=== PATIENT | female | born 1995 | race Native Hawaiian/Other Pacific Islander ===

== ENCOUNTER 2017-11-11 11:31 | Observation (INO) | payer OTHER ==
[2017-11-11] MEDS ORDERED: ONDANSETRON 4 MG/2 ML VIAL IVP PRN (11:57)
[2017-11-11] MEDS ORDERED: LR 1,000 ML IV SCH (12:00)
--- NOTE | 2017-11-11 12:23 | GHP ---
DATE OF ADMISSION: 11/11/2017 This is a triage observation note ADMITTING DIAGNOSIS: Intrauterine at 15 and 4/7 weeks gestation with abrupt onset of left lower quadrant pain and nausea. Evaluate for possible ovarian torsion or other etiologies. HISTORY OF PRESENT ILLNESS: The patient is a 22-year-old, 1, para 0, with an unsure last men strual period but an estimated due date of 05/02/2018 that was set by an 8-week ultrasound. She has had good care at [facility] since registration at 8 weeks' gestation and had a rel atively uncomplicated course. On the morning of the 2nd, the patient describes waking up and having increased nausea. She had significant 1st trimester nausea, but it had been improving over the previ ous few weeks. On the morning of the 2nd, she woke up and said that it was much worse. However, she did not have any vomiting episodes. She presented to work at [employer] [facility] a.m. she had an abrupt onset of left lower quadrant pain which caused her to have worse n ausea and become tearful. She describes her pain as 8/10, stabbing in nature, pinpoint of her left l ower quadrant. She denies any uterine cramping. No leakage of fluid. No vaginal bleeding. No abno rmal discharge. No dysuria, urgency or frequency. No difficulty with bowel or bladder. She has had no evidence of constipation and in fact had a normal bowel movement this morning and it did not caus e her pain. She says she was sitting at rest at work working on paperwork. She was not doing anythi ng active, lifting or twisting in any way. The patient presented to [facility] for evaluat ion. PHYSICAL EXAMINATION: VITAL SIGNS: She is afebrile. Vital signs are stable. GENERAL: She is well -developed, well-nourished female in moderate distress secondary to abdominal pain. LUNGS: Clear to auscultation bilaterally. HEART: Regular rate and rhythm. No murmur. ABDOMEN: Soft, mi ldly distended. She has hypoactive bowel sounds. Pinpoint tenderness in the left lower quadrant wit h voluntary guarding. No rebound. GENITOURINARY: Uterus: Fundus is firm, umbilicus -3, nontender, and no right adnexal tenderness. Pelvic exam was difficult because of patient's distress. Normal e xternal genitalia. Cervix is long and closed and firm. No abnormal discharge or vaginal bleeding. The patient had pain with uterine as well as on the adnexal cyst. STUDIES: She had an ultrasound evaluation in our office. The ultrasound revealed a normal active fe tus, a 15 week size, heart rate of 147, normal TISHA with an MVP of 4.19. Her left ovary was larger in size than her right and it is large in size and measurements from a month and a half ago. It was 5.1 8 x 1.76 x 2.09 and this was a point of her tenderness. It was difficult to see Doppler flow to that left ovary. Right ovary was normal in size, normal flow. She has no masses on her left ovary. No free fluid. No abnormalities observed on that side. PAST MEDICAL HISTORY: The patient has no past medical history or any medical problems. She had a mo uth injury at age 9 and fell and had to have that repaired. PAST SURGICAL HISTORY: No surgical history. SOCIAL HISTORY: She is a former smoker. She quit with her diagnosis. ALLERGIES: She has no known drug allergies. CURRENT MEDICATIONS: Her only current medications include vitamins. FAMILY HISTORY: No significant family history. REVIEW OF SYSTEMS: A 10-point review of system is performed and is negative except for pertinent pos itives as above in HPI. ASSESSMENT AND PLAN: 22-year-old 1, para 0, at 15 and 4/7 weeks gestation with abrupt onset left lower quadrant pain of unknown etiology. The patient will be kept for observation for now and s erial exams. We will do IV hydration and give her Zofran and morphine for pain. Check CBC, CMP, jackie lase, lipase and urinalysis and I may consider repeating her pelvic ultrasound in a few hours if she is not improved. /[id number]/MODL
[2017-11-11 12:48] LABS: PLATELET COUNT 222 10^3/uL (150-400)
[2017-11-11] MEDS ORDERED: ONDANSETRON DISINTEGRATING 4 MG TAB PO PRN (17:38)
== END 2017-11-11 20:10 | disposition home or self-care (01) ==
LOC: FLD 11:31
PROVIDERS: ADMIT Obstetrics & Gynecology; ATTEND Obstetrics & Gynecology
DX: O99.89 Other specified diseases and conditions complicating pregnancy, childbirth and the puerperium (principal); R10.32 Left lower quadrant pain; Z3A.15 15 weeks gestation of pregnancy
CPT/HCPCS: G0378 ×2; J2270; J2405

== ENCOUNTER 2018-03-13 14:08 | Observation (INO) | payer OTHER ==
--- NOTE | 2018-03-13 16:46 | SOAPPROG ---
SOAP Progress Note Assessment/Plan: Assessment: 22 at 32w6d with no evid of ROM - amnisure neg. Reassuring FHR tracing. Sounds like she was having stress or overflow incontinence. Plan: Will have her leave a clean catch UA, then dc home. PROM and PTL precautions reviewed. FU in office as previously scheduled in next 2 weeks. > 10 min spent face to face, 80% in counseling. Genoveva King MD, FACOG [facility] 03/13/18 19:58 Subjective: Pt reports gush of fluid this morning on her way to go to the bathroom to void, called office and left message. Did not receive a call back, so came in for work to [employer] for shift at 11:00, then had another trickle on her way to the bathroom to void again, so went to the office and was told to go to L&D for evaluation. Has not had any leaking since then. No dysuria or urgency. Good FM, no VB. No contractions. Preg c/b asymptomatic bacteruria at [facility], followed by neg PAT. Objective: VSS, afeb FHR 130 reactive, Cat 1 gen - pleasant, NAD abd - gravid, soft, NT back - no CVAT - Time Spent With Patient Time Spent With Patient: 10 min - Pending Discharge Pending Discharge Within 24 Hours: Yes Pending Discharge Within 48 Hours: Yes Pending Discharge Date: 03/15/18 Pending Discharge Time: 11:00 ICD10 Worksheet Patient Problems: Problems Problem Status Onset Urinary incontinence Acute - ICD10 Problem Qualifiers (1) Urinary incontinence Qualifiers: Urinary Incontinence type: overflow incontinence Qualified Code(s): N39.490 - Overflow incontinence
== END 2018-03-13 17:00 | disposition home or self-care (01) ==
LOC: FLD 14:08
PROVIDERS: ADMIT Hospitalist; ATTEND Hospitalist
DX: O26.893 Other specified pregnancy related conditions, third trimester (principal); N39.490 Overflow incontinence
CPT/HCPCS: 59025; G0378

== ENCOUNTER 2018-03-13 22:28 | Inpatient (IN) | payer OTHER ==
[~2018-03-13 22:28] MED LIST: AMPICILLIN SODIUM 2 GM in NS 100 ML IV ONE
[2018-03-13] MEDS ORDERED: BETAMETHASONE 30 MG/5 ML VIAL IM ONE (23:00)
[2018-03-13] MEDS ORDERED: OXYTOCIN/RINGERS LACTATE 1,000 ML IV PRN (23:00)
[2018-03-13] MEDS ORDERED: EPSOM SALT 454 GM TP PRN (23:00)
[2018-03-13] MEDS ORDERED: IBUPROFEN 600 MG TAB PO PRN (23:00)
[2018-03-13] MEDS ORDERED: OLIVE OIL 118 ML BTL MISC PRN (23:00)
[2018-03-13] MEDS ORDERED: MISOPROSTOL 200 MCG TAB PR PRN (23:00)
[2018-03-13] MEDS ORDERED: LIDOCAINE 1% 300 MG/30 ML SDV SC PRN (23:00)
[2018-03-13] MEDS ORDERED: LR 1,000 ML IV PRN (23:00)
[2018-03-13] MEDS ORDERED: AMPICILLIN SODIUM 2 GM/10 ML VIAL ONE (23:02)
[2018-03-13] MEDS ORDERED: TERBUTALINE SULFATE 1 MG/ML VIAL ONE ×2 (23:11→23:12)
[2018-03-13] MEDS ORDERED: OXYTOCIN 10 UNIT/ML VIAL ONE (23:12)
[2018-03-13] MEDS ORDERED: AMMONIA AROMATIC 1 EACH AMP IH ONE (23:12)
[2018-03-13] MEDS ORDERED: OLIVE OIL 118 ML BTL ONE (23:12)
[2018-03-13] MEDS ORDERED: LIDOCAINE 1% 300 MG/30 ML SDV ONE (23:12)
[2018-03-13 23:13] LABS: PLATELET COUNT 209 10^3/uL (150-400)
[2018-03-13] MEDS ORDERED: MISOPROSTOL 200 MCG TAB ONE (23:13)
[2018-03-13] MEDS ORDERED: NIFEdipine 10 MG CAP ONE (23:34)
--- NOTE | 2018-03-13 23:45 | PDGENHP ---
History and Physical - Chief Complaint CONTRACTIONS - History of Present Illness 22 yo G1 at 32w6d by US at 8w3d with contractions since 1930. She had been here in L&D for evaluation for LOF earlier this afternoon, was discharged home at 1700, and amnisure was negative. She was evaluated, and had not been having any contractions. She went home to rest, and suddenly she she started having contractions. She called and I encouraged her to hydrate well and continue to rest and call me back if no resolution. She called back an hour later with more painful contractions. NO LOF since she left. She did not have intercourse after leaving. course has been uncomplicated until today, except for asymptomatic bacteruria which was treated in early and FU urine culture was negative. O pos Rubell NON immune GBS unknown History Information - Allergies/Home Medication List Allergies/Adverse Reactions: No Allergies [NKDA] Allergy (Verified 11/11/17 11:47) I have personally reviewed and updated: family history, medical history, social history, surgical history - Past Medical History no pertinent PMH - Surgical History Additional surgical history: none - Family History Positive for: diabetes type II (M, MGM) Additional family history: kidney stones - M - Social History Smoking Status: Former smoker Alcohol Use: None (in preg) Drug Use: None Review of Systems Review of Systems: ROS: 10pt was reviewed & negative except for what was stated in HPI & below Physical Exam Physical Exam: 97.6 97 123/81 FHR 140 reactive, variable decels with contractions toco - q 2-3 min US done - cephalic, TISHA 9.45 cm SVE 4 / 80 / with BBOW Constitutional: no apparent distress (when not having a contraction- very uncomfortable with contractions), appears nourished Eyes: PERRL, anicteric sclera, EOMI Ears, Nose, Mouth, Throat: moist mucous membranes, hearing normal, ears appear normal Cardiovascular: regular rate and rhythym, no murmur, rub, or gallop Respiratory: no respiratory distress, no rales or rhonchi, clear to auscultation Gastrointestinal: normoactive bowel sounds Genitourinary: no bladder fullness, other (bloody show present) Skin: warm, normal color Musculoskeletal: full muscle strength Neurologic: AAOx3 Psychiatric: interacting appropriately, not anxious Lymph, Heme, Immunologic: no cervical LAD Lab Data & Imaging Review 03/13/18 23:00 WBC 13.50 10^3/uL (3.80-9.50) H 03/13/18 23:00 RBC 4.75 10^6/uL (4.18-5.33) 03/13/18 23:00 Hgb 13.6 g/dL (12.6-16.3) 03/13/18 23:00 Hct 42.2 % (38.0-47.0) 03/13/18 23:00 MCV 88.8 fL (81.5-99.8) 03/13/18 23:00 MCH 28.6 pg (27.9-34.1) 03/13/18 23:00 MCHC 32.2 g/dL (32.4-36.7) L 03/13/18 23:00 RDW 12.2 % (11.5-15.2) 03/13/18 23:00 Plt Count 209 10^3/uL (150-400) 03/13/18 23:00 MPV 11.0 fL (8.7-11.7) 03/13/18 23:00 Neut % (Auto) 66.8 % (39.3-74.2) 03/13/18 23:00 Lymph % (Auto) 24.7 % (15.0-45.0) 03/13/18 23:00 O'Brien % (Auto) 6.9 % (4.5-13.0) 03/13/18 23:00 Eos % (Auto) 0.8 % (0.6-7.6) 03/13/18 23:00 Baso % (Auto) 0.4 % (0.3-1.7) 03/13/18 23:00 Nucleat RBC Rel Count 0.0 % (0.0-0.2) 03/13/18 23:00 Absolute Neuts (auto) 9.01 10^3/uL (1.70-6.50) H 03/13/18 23:00 Absolute Lymphs (auto) 3.34 10^3/uL (1.00-3.00) H 03/13/18 23:00 Absolute Monos (auto) 0.93 10^3/uL (0.30-0.80) H 03/13/18 23:00 Absolute Eos (auto) 0.11 10^3/uL (0.03-0.40) 03/13/18 23:00 Absolute Basos (auto) 0.05 10^3/uL (0.02-0.10) 03/13/18 23:00 Absolute Nucleated RBC 0.00 10^3/uL (0-0.01) 03/13/18 23:00 Immature Gran % 0.4 % (0.0-1.1) 03/13/18 23:00 Immature Gran # 0.06 10^3/uL (0.00-0.10) 03/13/18 23:00 Assessment & Plan Assessment: 22 G1 at 32w6d in PTL - progressing rapidly with BBOW, no current evid of ROM 1) Betamethasone given at 2257 2) GBS unknown- amp 2 gm given at 2315 3) tocolysis attempt - nifedipine 20 mg given at 2336 MILEAGE CLERK aware and present Pt requesting epidural, tried nitrous oxide with minimal relief. Anticipate . Genoveva King MD, FACOG [facility]
[2018-03-14] MEDS ORDERED: AMPICILLIN SODIUM 2 GM in NS 100 ML IV ONE
[2018-03-14] MEDS ORDERED: fentaNYL 2MCG/ML/BUP 0.1% RTU 100 ML BAG EP ONE (00:02)
[2018-03-14] MEDS ORDERED: BUPIVACAINE 0.25% 10 ML SDV ONE (00:02)
[2018-03-14] MEDS ORDERED: PHENYLEPHRINE HCL 100 MCG/ML SYR ONE (00:02)
[2018-03-14] MEDS ORDERED: fentaNYL 100 MCG/2 ML INJ ONE (00:03)
--- NOTE | 2018-03-14 00:32 | PDANEPAE ---
ANE History of Present Illness Labor 9.5 cm requesting epidural ANE Past Medical History - Cardiovascular History Hx Hypertension: No - Pulmonary History Hx Asthma/Reactive Airway Disease: No Hx Sleep Apnea: No - Chronic Pain History Chronic Pain: No ANE Review of Systems Review of Systems: ANE Patient History - Allergies Allergies/Adverse Reactions: No Allergies [NKDA] Allergy (Verified 11/11/17 11:47) - Anes Hx Anes Hx: no prior problems (No prior epidural) - Smoking Hx Smoking Status: Former smoker - Alcohol Use Alcohol Use: None (in preg) ANE Labs/Vital Signs - Labs Result Diagrams: 03/13/18 23:00 ANE Physical Exam - Airway Neck exam: FROM Mallampati Score: Class 2 Mouth exam: normal dental/mouth exam - Pulmonary Pulmonary: no respiratory distress - Cardiovascular Cardiovascular: regular rate and rhythym - ASA Status ASA Status: II ANE Anesthesia Plan Anesthesia Plan: epidural
[2018-03-14] MEDS ORDERED: fentaNYL 2MCG/ML/BUP 0.1% RTU 100 ML EP SCH (01:00)
[2018-03-14] MEDS ORDERED: LR 500 ML IV SCH (01:00)
[2018-03-14] MEDS ORDERED: HYDROCORTISONE 0.5% CREAM TP PRN (02:20)
[2018-03-14] MEDS ORDERED: SIMETHICONE 80 MG TAB CHEW PO PRN (02:20)
--- NOTE | 2018-03-14 02:32 | OBDEL ---
Info Type: Vaginal Presentation at Delivery: Vertex L&D Analgesia/Anesthesia Type: Epidural GBS+: No (unknown) Antibiotic Used for + GBS: Ampicillin Intrapartum Medications: Generic Name Dose Route Start Last Admin Trade Name Fabi PRN Reason Stop Dose Admin Nifedipine 20 mg 03/14/18 23:31 03/13/18 23:31 Procardia PO 03/14/18 23:32 20 mg ONCE ONE Administration Discontinued Medications Generic Name Dose Route Start Last Admin Trade Name Chiragq PRN Reason Stop Dose Admin Betamethasone Acet/Betameth SodPhos 12.5 mg 03/13/18 23:00 03/13/18 23:12 Celestone Soluspan IM 03/13/18 23:01 12.5 mg ONCE ONE Administration Ampicillin Sodium 2 gm/ Sodium 110 mls @ 220 mls/hr 03/14/18 00:00 03/13/18 23:15 Chloride IV 03/14/18 00:29 110 mls ONCE ONE Administration Protocol - Infant Care Provider Fleet Director/ROTOR BALANCER: Melinda Vian - [facility] Course Intrapartum: Pt arrived at 2230 with regular contractions, 3-4 cm dilated with a BBOW. She was given beta-methasone, ampicillin for unknown GBS, nifedipine for attempted tocolysis, then received an epidural. She then became comfortable for a short time, until a bradycardic episode was noted and AROM performed - with a copious amount of bloody fluid. She pushed for about 10 minutes. 03/14/18 02:27 03/14/18 02:32 Indications for Delivery: Spontaneous Labor Vaginal Delivery - Delivery Provider Delivery Physician/CNM: Genoveva King - Labor and Delivery Onset of Contractions Date: 03/13/18 Onset of Contractions Time: 19:30 Onset of Contractions Type: Spontaneous Rupture of Membranes Date: 03/14/18 Rupture of Membranes Time: 00:59 Rupture of Membranes Type: Artificial Amniotic Fluid Color: Bloody Dilation Complete Date: 03/14/18 Dilation Complete Time: 00:57 Placenta Delivery Date: 03/14/18 Placenta Delivery Time: 01:14 Total Hours of Labor: 5 Non-surgical Procedures: Amniotomy Laceration: Other (Specify) (subclitoral laceration repaired as was not hemostatic until repaired) Repair: 3-0, Vicryl Vaginal Sponge Count Correct: Yes Vaginal Needle Count Correct: Yes Vaginal Sweep Performed: Yes EBL: 250 Delivery Events: Nuchal Cord (nuchal cord reduced on perineum, delivered through body cord, low tone) Delivery Comment: Was called to room due to low heart tones. Pt was comfortable with epidural and had a bulging bag of water and was completely dilated. Once ROTOR BALANCER and NICU team were ready. AROM was performed- copious amounts of bloody fluid was released. She pushed for about 10 minutes, with delivery of vertex. Nuchal cord reduced on perineum, delivered through body cord. Hypotonia noted, so at direction of ROTOR BALANCER, cord was immediately clamped and cut and infant handed to ROTOR BALANCER. Apgars 2 at 1 min and 7 at 5 minutes. Art blood gas 7.10 V 7.16, BE - 15.1. Placenta delivered spontaneously 4 min later. it was noted that about 1/ 3 of membrane surface was covered with dark adherent clot. Examination showed an actively bleeding subclitoral laceration, which was immediately repaired with 3.0 Vicryl. Pt tolerated the procedure well. Baby was taken to the NICU by the ROTOR BALANCER. Cord Gases: Cord Gases Cord Blood PCO2 52 mmHg (37-60) 03/14/18 01:20 Cord Base Excess -15.1 mEq/L (-13.6--3.2) L 03/14/18 01:20 Cord ABG pH 7.10 (7.10-7.37) 03/14/18 01:20 Cord VBG pH 7.16 (7.20-7.42) L 03/14/18 01:20 - Medications Labor Augmentation/Induction Methods Used: None Operative Report - Delivery Cord Gases: Cord Gases Cord Blood PCO2 52 mmHg (37-60) 03/14/18 01:20 Cord Base Excess -15.1 mEq/L (-13.6--3.2) L 03/14/18 01:20 Cord ABG pH 7.10 (7.10-7.37) 03/14/18 01:20 Cord VBG pH 7.16 (7.20-7.42) L 03/14/18 01:20 Data LINDA: 05/02/18 Gestational Age: 33 week(s) and 0 day(s) Hernandez Delivery Date: 03/14/18 Delivery Time: 01:10 ("Jay") Sex of Infant: Female Weight (gm): 1728 g (minimal tone, to ROTOR BALANCER immediately at her request - no delay in cord clamping) Score (1 Min): 2 Score (5 Min): 7 ICD10 Worksheet Patient Problems: Problems Problem Status Onset delivery Acute Urinary incontinence Acute - ICD10 Problem Qualifiers (1) delivery
[2018-03-14] MEDS: ACETAMINOPHEN 325 MG TAB PO PRN ×3 (05:50→18:31)
[2018-03-14] MEDS: DOCUSATE SODIUM 100 MG CAP PO PRN (09:41)
[2018-03-14] MEDS: AMPICILLIN SODIUM 1 GM in NS 100 ML IV SCH (09:45)
--- NOTE | 2018-03-14 12:16 | POSTANESTH ---
Post Anesthetic Evaluation Cardiovascular Status: Similar to Pre-Op Cond Respiratory Status: Similar to Pre-op Cond. Level of Consciousness/Mental Status: Can Participate in Eval Pain Control: Adequate, Prn Tx Ordered Nausea/Vomiting Control: Adequate, Prn Tx Ordered Complications Possibly Related to Anesthesia: None Noted
[2018-03-14] MEDS: IBUPROFEN 600 MG TAB PO PRN ×2 (12:39→18:31)
--- NOTE | 2018-03-14 14:49 | OBPP ---
Progress Note Assessment/Plan: Assessment: 22 y/o G 1 P0101 PPD #0 s/p @ 33 weeks. Plan: Ibuprofen and Tylenol PRN. support and normal pp care. 03/14/18 14:48 Subjective/ Course: 03/14/18 14:46 Pt is doing well, she has soreness with voiding and some cramping. She is taking Ibuprofen and Tylenol and doing well. She is beginning to pump and getting small amounts of colustrum. Baby is on CPAP stable in the NICU. Objective: 03/13/18 23:00 Patient ABO/Rh O POSITIVE 03/13/18 23:00 Temp Pulse Resp BP Pulse Ox 36.4 C 95 16 108/73 96 03/14/18 08:00 03/14/18 08:00 03/14/18 08:00 03/14/18 08:00 03/14/18 08:00 Uterine Position/Fundal Height: Umbilicus -2 Uterine Tone: Firm Physical Exam - Physical Exam General Appearance: alert, no apparent distress Neck: non-tender, full range of motion, supple Respiratory: chest non-tender, lungs clear, normal breath sounds Cardiac/Chest: regular rate, rhythm Abdomen: normal bowel sounds Extremities: swelling (no), Liya's sign (neg)
[2018-03-14] MEDS ORDERED: NIFEdipine 10 MG CAP PO ONE (23:31)
[2018-03-15] MEDS: IBUPROFEN 600 MG TAB PO PRN ×4 (00:09→21:14)
[2018-03-15] MEDS: ACETAMINOPHEN 325 MG TAB PO PRN ×3 (00:10→21:14)
[2018-03-15] MEDS: DOCUSATE SODIUM 100 MG CAP PO PRN ×2 (00:10→08:34)
[2018-03-15] MEDS: FERRO-SEQUELS 65 MG TAB.ER PO SCH ×2 (13:40→21:15)
--- NOTE | 2018-03-15 15:50 | OBPP ---
Progress Note Assessment/Plan: Assessment: 22 PPD#1 s/p at 33 weeks in setting of abruption. Baby stable in NICU. Anemia. Plan: Continue routine cares. Start iron and stool softener BID. Genoveva King MD, FACOG, [facility] 03/15/18 15:46 Subjective/ Course: 03/14/18 14:46 Pt is doing well, she has soreness with voiding and some cramping. She is taking Ibuprofen and Tylenol and doing well. She is beginning to pump and getting small amounts of colustrum. Baby is on CPAP stable in the NICU. 03/15/18 15:49 Pt doing well. Ambulating and voiding without difficulty - though stings when voids. Discomfort well controlled with po meds. Pumping. Baby having a trial off CPAP and is doing well with skin to skin. Mod lochia. Objective: 03/15/18 05:30 Patient ABO/Rh O POSITIVE 03/13/18 23:00 Temp Pulse Resp BP Pulse Ox 36.5 C 77 14 88/51 L 98 03/15/18 08:30 03/15/18 08:30 03/15/18 08:30 03/15/18 08:30 03/15/18 08:30 gen - pleasant, NAD, doing skin to skin in NICU CV - RRR chest - CTAB abd - soft, fundus firm at u-3 ext - calves NT, no edema BLE Uterine Position/Fundal Height: Umbilicus -3 Uterine Tone: Firm
[2018-03-15] MEDS ORDERED: MEASLES,MUMPS&RUBELLA VACC/PF 0.5 ML VIAL SC ONE (22:17)
[2018-03-16] MEDS: ACETAMINOPHEN 325 MG TAB PO PRN ×3 (03:06→16:37)
[2018-03-16] MEDS: IBUPROFEN 600 MG TAB PO PRN ×3 (03:06→16:37)
[2018-03-16 09:03] VITALS: BP 105/61
--- NOTE | 2018-03-16 09:11 | OBPP ---
Progress Note Assessment/Plan: Assessment: Plan: Subjective/ Course: 03/14/18 14:46 Pt is doing well, she has soreness with voiding and some cramping. She is taking Ibuprofen and Tylenol and doing well. She is beginning to pump and getting small amounts of colustrum. Baby is on CPAP stable in the NICU. 03/15/18 15:49 Pt doing well. Ambulating and voiding without difficulty - though stings when voids. Discomfort well controlled with po meds. Pumping. Baby having a trial off CPAP and is doing well with skin to skin. Mod lochia. Objective: 03/15/18 05:30 Patient ABO/Rh O POSITIVE 03/13/18 23:00 Temp Pulse Resp BP Pulse Ox 37.0 C 69 17 105/61 97 03/16/18 08:00 03/16/18 08:00 03/16/18 08:00 03/16/18 08:00 03/16/18 08:00
[2018-03-16] MEDS: FERRO-SEQUELS 65 MG TAB.ER PO SCH (09:22)
[2018-03-16] MEDS: DOCUSATE SODIUM 100 MG CAP PO PRN (09:22)
[2018-03-16] MEDS ORDERED: MEASLES,MUMPS&RUBELLA VACC/PF 0.5 ML VIAL SC ONE (14:30)
== END 2018-03-16 18:00 | disposition home or self-care (01) | DRG 807 ==
LOC: OBSVTOIN 22:28 → FLD 22:28 → FOB 03-14 05:32
PROVIDERS: ADMIT Hospitalist; ATTEND Hospitalist
DX: O60.13X0 Preterm labor second trimester with preterm delivery third trimester, not applicable or unspecified (principal); Z37.0 Single live birth; O71.89 Other specified obstetric trauma; O76 Abnormality in fetal heart rate and rhythm complicating labor and delivery; Z3A.32 32 weeks gestation of pregnancy; O99.824 Streptococcus B carrier state complicating childbirth; O69.82X0 Labor and delivery complicated by other cord entanglement, without compression, not applicable or unspecified
CPT/HCPCS: J0290; J0702; J2370; J2590; J3010; J3105